=== PATIENT | female | born 1945 | race Caucasian/White ===

== ENCOUNTER → 2024-06-05 11:26 | Outpatient (REF) | payer MEDICARE, OTHER, SELFPAY ==
[2024-06-05 16:01] LABS: D-Dimer 1.54 ug/mlFEU (0.00-0.50)
== END ==
LOC: HWRAD 11:26
PROVIDERS: ATTENDING PHYSICIAN Internal Medicine Critical Care Medicine; FAMILY PHYSICIAN Family Medicine
DX: Z87.891 Personal history of nicotine dependence (principal); I26.99 Other pulmonary embolism without acute cor pulmonale
CPT/HCPCS: 36415; 71271; 85379

== ENCOUNTER → 2024-06-15 10:03 | Outpatient (REF) | payer MEDICARE, OTHER, SELFPAY | LOC: RCS 10:03 | PROVIDERS: ATTENDING PHYSICIAN Internal Medicine Critical Care Medicine; FAMILY PHYSICIAN Family Medicine | DX: I26.99 Other pulmonary embolism without acute cor pulmonale (principal); J96.01 Acute respiratory failure with hypoxia | CPT/HCPCS: 71046; 78582; 93306; 93970; A9540; A9567 ==

== ENCOUNTER 2024-08-14 06:24 | Day surgery (SDC) | payer MEDICARE, OTHER, SELFPAY ==
[2024-08-08 12:54] VITALS: BMI 39.3
--- NOTE | 2024-08-09 09:11 | PTCARENOTE ---
Patients 08/08 UA w/ 70-80 WBCShakir Woodward @ Dr. Hurtado office notified
[2024-08-14 09:02] VITALS: BMI 38.6
[2024-08-14 09:04] VITALS: BMI 38.6
[2024-08-14 09:05] VITALS: BP 168/89
[2024-08-14 09:18] LABS: Glucose - Point of Care 87 mg/dl (70-99)
[2024-08-14] MEDS: NORMOSOL-R/PLASMALYTE-A 1000 IV (09:57)
== END 2024-08-14 11:45 | disposition home or self-care (01) ==
LOC: SDS 06:24
PROVIDERS: ATTENDING PHYSICIAN Urology
DX: N39.41 Urge incontinence (principal); R15.9 Full incontinence of feces; N32.81 Overactive bladder
CPT/HCPCS: 64590; 64561; 72170; 76000; 82962; 87077; 87086; 87186; C1767; C1778; C1787; L8681

== ENCOUNTER → 2024-12-04 06:04 | Day surgery (SDC) | payer MEDICARE, OTHER, SELFPAY | LOC: SDS 06:04 | PROVIDERS: ATTENDING PHYSICIAN Urology | DX: N39.41 Urge incontinence (principal); N39.0 Urinary tract infection, site not specified; R15.9 Full incontinence of feces; Z53.9 Procedure and treatment not carried out, unspecified reason | CPT/HCPCS: 64561 ==

== ENCOUNTER → 2025-10-15 13:12 | Outpatient (REF) | payer MEDICARE, OTHER, SELFPAY ==
[2025-10-15 16:19] LABS: Hematocrit 41.0 % (37.0-47.0); Hemoglobin 12.1 g/dL (12.0-16.0); Mean Corp Hgb Conc. 29.5 g/dL (33.0-37.0); Mean Corpuscular Volume 77.9 fL (81.0-99.0); Nucleated Red Blood Cells % 0 %; Platelet Count 430 10^3/uL (130-400); Red Cell Dist. Width 17.2 % (11.5-14.5)
[2025-10-15 16:28] LABS: D-Dimer 1.80 ug/mlFEU (0.00-0.50)
[2025-10-15 16:43] LABS: ALT (SGPT) 13 U/L (0-35); AST (SGOT) 18 U/L (14-36); Albumin 4.4 g/dl (3.5-5.0); Alkaline Phosphatase 64 U/L (38-126); Blood Urea Nitrogen 15 mg/dl (7-17); Calcium 10.1 mg/dl (8.4-10.2); Carbon Dioxide 27 mmol/L (22-30); Chloride 99 mmol/L (98-107); Glucose 84 mg/dl (70-99); Potassium 5.0 mmol/L (3.5-5.1); Sodium 133 mmol/L (135-145); Total Protein 7.4 g/dl (6.3-8.2); eGFR > 60.00
[2025-10-15 16:47] LABS: C-Reactive Protein < 5.00 mg/L (0.0-10.00)
[2025-10-15 17:54] LABS: Folate 5.5 ng/ml (2.76-20); Vitamin B12 918 pg/ml (239-931)
== END ==
LOC: HWRAD 13:12
PROVIDERS: ATTENDING PHYSICIAN Internal Medicine Rheumatology; FAMILY PHYSICIAN Family Medicine; OTHER PHYSICIAN Internal Medicine Hematology & Oncology; REFERRING PHYSICIAN Nurse Practitioner Family
DX: M81.0 Age-related osteoporosis without current pathological fracture (principal); Z87.891 Personal history of nicotine dependence; M06.00 Rheumatoid arthritis without rheumatoid factor, unspecified site; M18.11 Unilateral primary osteoarthritis of first carpometacarpal joint, right hand; M19.012 Primary osteoarthritis, left shoulder; M19.031 Primary osteoarthritis, right wrist; Z51.81 Encounter for therapeutic drug level monitoring; Z86.711 Personal history of pulmonary embolism; I26.99 Other pulmonary embolism without acute cor pulmonale; E61.1 Iron deficiency
CPT/HCPCS: 36415; 71271; 77080; 80053; 82607; 82746; 85025; 85379; 85652; 86140; 86618

== ENCOUNTER → 2025-10-30 11:24 | Outpatient (REF) | payer MEDICARE, OTHER, SELFPAY | LOC: WDC 11:24 | PROVIDERS: ATTENDING PHYSICIAN Family Medicine | DX: N63.20 Unspecified lump in the left breast, unspecified quadrant (principal); N63.10 Unspecified lump in the right breast, unspecified quadrant; N63.11 Unspecified lump in the right breast, upper outer quadrant; N63.22 Unspecified lump in the left breast, upper inner quadrant | CPT/HCPCS: 76642; 77062; 77066 ==